=== PATIENT | female | born 1950 | race Two or more races ===

== ENCOUNTER 2018-01-24 07:28 | Outpatient (CLI) | payer OTHER, BC ==
[~2018-01-24 07:28] MED LIST: DICLOFENAC POTA50 MG PO
== END 2018-01-24 07:42 | disposition home or self-care (01) ==
LOC: NUCLEAR 07:28
DX: I10 Essential (primary) hypertension (principal); E78.2 Mixed hyperlipidemia; R94.31 Abnormal electrocardiogram [ECG] [EKG]

== ENCOUNTER 2018-03-13 10:30 | Outpatient (CLI) | payer OTHER, BC | END 2018-03-13 10:34 | disposition home or self-care (01) | LOC: MAMO-SONO 10:30 | DX: Z12.31 Encounter for screening mammogram for malignant neoplasm of breast (principal); Z87.898 Personal history of other specified conditions; N61.0 Mastitis without abscess ==

== ENCOUNTER 2019-07-02 09:32 | Outpatient (CLI) | payer OTHER, BC | END 2019-07-02 09:34 | disposition home or self-care (01) | LOC: MAMO-SONO 09:32 | DX: Z12.31 Encounter for screening mammogram for malignant neoplasm of breast (principal); N60.11 Diffuse cystic mastopathy of right breast; N60.12 Diffuse cystic mastopathy of left breast; Z87.898 Personal history of other specified conditions; Z09 Encounter for follow-up examination after completed treatment for conditions other than malignant neoplasm ==

== ENCOUNTER 2020-06-01 08:59 | Outpatient (CLI) | payer OTHER, BC | END 2020-06-01 09:08 | disposition home or self-care (01) | LOC: NUCLEAR 08:59 | PROVIDERS: ATTEND Internal Medicine | DX: M81.0 Age-related osteoporosis without current pathological fracture (principal); D50.8 Other iron deficiency anemias; E66.09 Other obesity due to excess calories; I10 Essential (primary) hypertension; C50.911 Malignant neoplasm of unspecified site of right female breast ==

== ENCOUNTER 2020-08-18 11:19 | Outpatient (CLI) | payer OTHER, BC | END 2020-08-18 11:25 | disposition home or self-care (01) | LOC: MAMO-SONO 11:19 | PROVIDERS: ATTEND Internal Medicine Rheumatology | DX: R92.0 Mammographic microcalcification found on diagnostic imaging of breast (principal); Z12.31 Encounter for screening mammogram for malignant neoplasm of breast; N60.11 Diffuse cystic mastopathy of right breast; N60.12 Diffuse cystic mastopathy of left breast ==

== ENCOUNTER → 2021-07-18 | Outpatient (CLI) | payer OTHER, BC | END | disposition home or self-care (01) | LOC: TOM 11:43 | DX: G93.89 Other specified disorders of brain (principal); I10 Essential (primary) hypertension; J45.909 Unspecified asthma, uncomplicated; J45.901 Unspecified asthma with (acute) exacerbation; M19.90 Unspecified osteoarthritis, unspecified site ==